=== PATIENT | female | born 1995 | race Caucasian/White ===

== ENCOUNTER 2021-05-28 15:25 | Emergency (ER) | payer OTHER ==
[~2021-05-28] VITALS: Ht 157.5 cm; Wt 97.5 kg
[~2021-05-28 15:25] MED LIST: ALEVE220 MG PO; AMOXICILLIN; BACTRIM DS TAB1 EACH PO; FLAGYL500 MG PO; IBUPROFEN 800800 M1 PO; MACROBID 100 M100 M1 PO; NECON1 EAC4 PO; NUVARING VAGIN1 EACH; PREDNISONE 10 M10 MG PO; TAGAMETTAB
[2021-05-28] MEDS ORDERED: MECLIZINE HCL25 M1 PO (16:00)
[2021-05-28] MEDS ORDERED: IBU800 MG PO (16:04)
[2021-05-28 16:08] VITALS: BP 120/70
== END 2021-05-28 16:08 | disposition home or self-care (01) ==
LOC: M.ERS 15:25
DX: R50.9 Fever, unspecified (principal); Z79.899 Other long term (current) drug therapy; Z91.040 Latex allergy status